=== PATIENT | female | born 1960 | race Caucasian/White ===

== ENCOUNTER 2017-05-16 12:59 | Emergency (ER) | payer BC ==
[2017-05-16 14:13] VITALS: BP 92/53
--- NOTE | 2017-05-16 14:15 | UC ---
Throat Pain/Nasal Carlos HPI - HPI Summary HPI Summary: Pt presents with ST, hoarseness, and dry cough for 5 days. She has not taken anything OTC. Denies sinus symptoms, SOB, fever, chills, chest pain, abdominal pain, N/V/D/C. - History of Current Complaint Hx Obtained From: Patient Onset/Duration: Gradual Onset Severity: Mild <Nirav Dao - Last Filed: 05/16/17 14:33> <Karli Edmonds - Last Filed: 05/16/17 14:39> - History of Current Complaint Chief Complaint: UCGeneralIllness Stated Complaint: CONGESTION Time Seen by Provider: 05/16/17 14:15 - Allergies/Home Medications Allergies/Adverse Reactions: Allergies Allergy/AdvReac Type Severity Reaction Status Date / Time No Known Allergies Allergy Verified 05/16/17 14:06 PMH/Surg Hx/FS Hx/Imm Hx Previously Healthy: Yes - Surgical History Surgical History: None - Family History Known Family History: Positive: Unknown - Social History Occupation: Employed Full-time Lives: Alone Alcohol Use: None Substance Use Type: None Smoking Status (MU): Never Smoked Tobacco - Immunization History Most Recent Influenza Vaccination: never <Nirav Dao - Last Filed: 05/16/17 14:33> Review of Systems Constitutional: Negative Skin: Negative Eyes: Negative ENT: Sore Throat Respiratory: Cough Cardiovascular: Negative Gastrointestinal: Negative All Other Systems Reviewed And Are Negative: Yes <Nirav Dao - Last Filed: 05/16/17 14:33> Physical Exam Triage Information Reviewed: Yes Appearance: Well-Appearing, Well-Nourished Vital Signs: Initial Vital Signs Temp 98.3 F 05/16/17 14:07 Pulse 74 05/16/17 14:07 Resp 18 05/16/17 14:07 BP 92/53 05/16/17 14:07 Pulse Ox 99 05/16/17 14:07 Vital Signs Reviewed: Yes Eyes: Positive: Conjunctiva Clear. Negative: Conjunctiva Inflamed, Discharge ENT: Positive: Normal ENT inspection, Hearing grossly normal, Pharynx normal, TMs normal, Hoarse voice, Uvula midline. Negative: Pharyngeal erythema, Nasal congestion, Nasal drainage, TM bulging, TM dull, TM red, Tonsillar swelling, Tonsillar exudate, Muffled voice, Sinus tenderness Neck: Positive: Supple, Nontender, No Lymphadenopathy Respiratory: Positive: Chest non-tender, Lungs clear, Normal breath sounds, No respiratory distress, No accessory muscle use Cardiovascular: Positive: RRR, No Murmur, Pulses Normal Neurological: Positive: Alert Psychological: Positive: Age Appropriate Behavior Skin: Negative: rashes <Nirav Dao - Last Filed: 05/16/17 14:33> Vital Signs: Initial Vital Signs Temp 98.3 F 05/16/17 14:07 Pulse 74 05/16/17 14:07 Resp 18 05/16/17 14:07 BP 92/53 05/16/17 14:07 Pulse Ox 99 05/16/17 14:07 <Karli Edmonds - Last Filed: 05/16/17 14:39> Throat Pain/Nasal Course/Dx - Course Course Of Treatment: Laryngitis. Bronchitis - Differential Dx/Diagnosis Differential Diagnosis/HQI/PQRI: Laryngitis, Mononucleosis, Pharyngitis, Tonsillitis, URI Provider Diagnoses: Laryngitis. Bronchitis <Nirav Dao - Last Filed: 05/16/17 14:33> Discharge <Nirav Dao - Last Filed: 05/16/17 14:33> <Karli Edmonds - Last Filed: 05/16/17 14:39> - Discharge Plan Condition: Stable Disposition: HOME Prescriptions: Benzonatate CAP* [Tessalon 100 MG CAP*] 100 mg PO TID PRN #30 cap PRN Reason: Cough Patient Education Materials: Laryngitis (ED) Referrals: Tona Perez MD [Primary Care Provider] - Additional Instructions: If you develop a fever, SOB, chest pain, new or worsening symptoms - please call your PCP or go to the ED. Attestation Statement User Type: Provider - I was available for consult. This patient was seen by the NELIA. The patient was not presented to, seen by, or examined by me. -Bird <Karli Edmonds - Last Filed: 05/16/17 14:39>
== END 2017-05-16 14:33 | disposition home or self-care (01) ==
LOC: UCEAST 12:59
DX: J04.0 Acute laryngitis (principal); J40 Bronchitis, not specified as acute or chronic
CPT/HCPCS: 99212; G0463

== ENCOUNTER 2018-08-13 21:28 | Emergency (ER) | payer BC ==
[2018-08-13 21:53] VITALS: BP 108/40
[2018-08-13] MEDS ORDERED: Fluorescein Sodium TOPICAL* 1 MG TEST STRIP OPHTHALMIC ONE (21:58)
--- NOTE | 2018-08-13 22:00 | UC ---
Eye Complaint HPI - HPI Summary HPI Summary: Patient felt like she got somehting in her left eye about a week ago. not sure it is still there but having painon the lower portion of her left eye. - History of Current Complaint Chief Complaint: UCEye Stated Complaint: EYE COMPLAINT Time Seen by Provider: 08/13/18 21:55 Hx Obtained From: Patient Hx Last Menstrual Period: post menopause ?: No Onset/Duration: Sudden Onset, Lasting Days Timing: Constant Severity Initially: Mild Severity Currently: Moderate Pain Intensity: 4 Location of Injury: Sclera Character: Foreign Body Sensation - Allergies/Home Medications Allergies/Adverse Reactions: Allergies Allergy/AdvReac Type Severity Reaction Status Date / Time No Known Allergies Allergy Verified 05/16/17 14:06 PMH/Surg Hx/FS Hx/Imm Hx Previously Healthy: Yes - Surgical History Surgical History: None - Family History Known Family History: Positive: Unknown - Social History Alcohol Use: None Substance Use Type: None Smoking Status (MU): Never Smoked Tobacco - Immunization History Most Recent Influenza Vaccination: never Review of Systems All Other Systems Reviewed And Are Negative: Yes Constitutional: Positive: Negative Skin: Positive: Negative Eyes: Positive: Other - FB sensation ENT: Positive: Negative Respiratory: Positive: Negative Cardiovascular: Positive: Negative Gastrointestinal: Positive: Negative Genitourinary: Positive: Negative Motor: Positive: Negative Neurovascular: Positive: Negative Musculoskeletal: Positive: Negative Neurological: Positive: Negative Psychological: Positive: Negative Is Patient Immunocompromised?: No Physical Exam Triage Information Reviewed: Yes Appearance: Well-Appearing, Well-Nourished, Pain Distress Vital Signs: Initial Vital Signs Temp 98.4 F 08/13/18 21:48 Pulse 62 08/13/18 21:48 Resp 16 08/13/18 21:48 BP 108/40 08/13/18 21:48 Pulse Ox 99 08/13/18 21:48 Vital Signs Reviewed: Yes ENT Exam: Normal Dental Exam: Normal Neck exam: Normal Respiratory Exam: Normal Cardiovascular Exam: Normal Abdominal Exam: Normal Musculoskeletal Exam: Normal Neurological Exam: Normal Psychological Exam: Normal Skin Exam: Normal Eye Complaint Course/Dx - Course Course Of Treatment: hx obtained, exam performed ,meds reviewed, florescene used to examine eye. - Differential Dx/Diagnosis Differential Diagnosis/HQI/PQRI: Corneal Abrasion, Foreign Body, Periorbital Cellulitis, Uveitis Provider Diagnosis: Corneal abrasion, left Discharge - Sign-Out/Discharge Documenting (check all that apply): Patient Departure All imaging exams completed and their final reports reviewed: No Studies - Discharge Plan Condition: Stable Disposition: HOME Patient Education Materials: Corneal Abrasion (ED) Referrals: Tona Perez MD [Primary Care Provider] - Additional Instructions: 1. use the cream as prescribed. 2. Wear sunglasses if bright outside. 3. If not improving in the next 5 days with treatment follow up with your eye doctor. - Billing Disposition and Condition Condition: STABLE Disposition: Home
[2018-08-13] MEDS ORDERED: Erythromycin OPTH OINT* APPLIC OINT LEFT EYE ONE (22:14)
== END 2018-08-13 22:30 | disposition home or self-care (01) ==
LOC: UCEAST 21:28
DX: S05.02XA Injury of conjunctiva and corneal abrasion without foreign body, left eye, initial encounter (principal); X58.XXXA Exposure to other specified factors, initial encounter; Y92.9 Unspecified place or not applicable
CPT/HCPCS: 99212; A9270-GY; G0463

== ENCOUNTER 2019-01-17 05:49 | Day surgery (SDC) | payer SELFPAY ==
[~2019-01-17 05:49] MED LIST: Buffered Lidocaine 1% SYRIN* 1 ML/SYRINGE INTRADERM ONE
[2019-01-17] MEDS ORDERED: Sodium Citrate/Citric Acid* 15 ML UDC PO ONE (06:00)
[2019-01-17] MEDS ORDERED: Lactated Ringers 1000 ML Bag* 1,000 ML IV SCH (06:00)
[2019-01-17] MEDS ORDERED: Sodium Citrate/Citric Acid* 15 ML UDC ONE (06:32)
[2019-01-17] MEDS ORDERED: ceFAZolin 2 GM in NS PREMIX(*) 2 GM/100 ML BAG IVPB ONE (06:32)
[2019-01-17] MEDS ORDERED: Dexamethasone IV* 4 MG/ML 5 ML VIAL (20 MG) ONE (06:32)
[2019-01-17] MEDS ORDERED: Scopolamine 1.5 mg* PATCH ONE (06:32)
[2019-01-17] MEDS ORDERED: Buffered Lidocaine 1% SYRIN* 1 ML/SYRINGE INTRADERM ONE ×2 (06:32→07:13)
[2019-01-17] MEDS ORDERED: Ondansetron INJ* 2 MG/ML VIAL ONE (06:57)
[2019-01-17] MEDS ORDERED: Lidocaine 1% w EPI 1:100,000* MDV 20 ML VIAL ONE ×2 (07:21→07:30)
[2019-01-17] MEDS ORDERED: Bupivacaine 0.25% SDV PF* 10 ML VIAL INJ ONE ×2 (07:22→07:23)
[2019-01-17] MEDS ORDERED: Rocuronium* 10 MG/ML VIAL ONE (07:25)
[2019-01-17] MEDS ORDERED: Lidocaine 2% PF * 5 ML VIAL ONE (07:25)
[2019-01-17] MEDS ORDERED: Propofol* 10 MG/ML 20 ML BTL ONE (07:25)
[2019-01-17] MEDS ORDERED: Midazolam* 1 MG/ML 2 ML VIAL (2 MG) ONE (07:26)
[2019-01-17] MEDS ORDERED: fentaNYL* 50 MCG/ML 2 ML VIAL (100 MCG VIAL) ONE ×2 (07:46→11:14)
[2019-01-17] MEDS ORDERED: Glycopyrrolate IV* 0.2 MG/ML 1 ML VIAL ONE (09:32)
[2019-01-17] MEDS ORDERED: Neostigmine Methylsulfate* 3 MG/3 ML SYRINGE ONE (09:32)
[2019-01-17] MEDS ORDERED: Acetaminophen IV 1GM/100ML * 1,000 MG/100 ML VIAL IVPB ONE (09:35)
[2019-01-17] MEDS ORDERED: fentaNYL* 50 MCG/ML 2 ML VIAL (100 MCG VIAL) IV PRN (09:35)
[2019-01-17] MEDS ORDERED: Naloxone* 0.4 MG/ML 1 ML VIAL IV PRN (09:35)
[2019-01-17] MEDS ORDERED: Acetaminophen IV 1GM/100ML * 100 ML ONE (11:14)
[2019-01-17] MEDS ORDERED: Ibuprofen TAB* 200 MG ONE (11:41)
[2019-01-17 17:36] VITALS: BP 118/86
== END 2019-01-17 17:37 | disposition home or self-care (01) ==
LOC: OR 05:49
PROVIDERS: ATTEND Plastic Surgery
DX: Z41.1 Encounter for cosmetic surgery (principal); E78.5 Hyperlipidemia, unspecified; M19.90 Unspecified osteoarthritis, unspecified site; F41.8 Other specified anxiety disorders; M54.2 Cervicalgia; M54.89 Other dorsalgia
CPT/HCPCS: 88305; A9270-GY; A9272-GY; J0690; J1100; J2250; J2405; J2704; J2710; J3010; J3490